=== PATIENT | female | born 1980 | race Caucasian/White ===

== ENCOUNTER 2017-07-07 01:04 | Emergency (ER) | payer MEDICAID ==
[~2017-07-07] VITALS: Ht 165.1 cm; Wt 68.0 kg
[2017-07-07 01:08] VITALS: BP 109/64
--- NOTE | 2017-07-07 01:17 | NUR ---
PT AMBULATED TO BED 1
--- NOTE | 2017-07-07 01:22 | NUR ---
37 y/o bib W/C/O L LOWER ABD PAIN X 1 HR MINUTES AGO. PT STTATES PAIN WAS LOCATED ALL OVER ABD AND MOVED TO L LOWER ABD WHILE ATTEMPING TO PASS ANGUS X 30 APPROXIMATELY MINUTES AGO . MED HX TUBO LIGATION.
--- NOTE | 2017-07-07 01:30 | NUR ---
Dr. Contreras evaluating patient.
[2017-07-07] MEDS ORDERED: NACL 0.9% 1,000 ML IV SCH (01:31)
[2017-07-07] MEDS ORDERED: ONDANSETRON 4 MG/2 ML VIAL IVP ONE (01:35)
[2017-07-07] MEDS ORDERED: MORPHINE SULFATE 10 MG/ML SYR IVP ONE (01:35)
[2017-07-07] MEDS ORDERED: MORPHINE SULFATE 4 MG/ML SYR ONE (01:40)
[2017-07-07 01:53] LABS: BASOPHILS % (AUTO) 0.6 % (0.0-2.0); EOSINOPHILS # (AUTO) 0.2 K/uL (0-0.4); EOSINOPHILS % (AUTO) 2.5 % (0.0-4.0); HEMATOCRIT 39.2 % (36-48); HEMOGLOBIN 12.7 g/dL (12.0-16.0); LYMPHOCYTES # (AUTO) 2.4 K/uL (2.5-16.5); LYMPHOCYTES % (AUTO) 29.8 % (20.5-51.1); MEAN CORPUSCULAR HEMOGLOBIN 29 pg (27-31); MEAN CORPUSCULAR HGB CONC 33 g/dL (33-37); MEAN CORPUSCULAR VOLUME 88.7 fL (80-94); MONOCYTES # (AUTO) 0.6 K/uL (0.8-1.0); MONOCYTES % (AUTO) 6.9 % (1.7-9.3); NEUTROPHILS # (AUTO) 4.8 K/uL (1.8-7.7); NEUTROPHILS % (AUTO) 60.2 % (42.2-75.2); PLATELET COUNT (AUTO) 169 K/uL (140-450); RED BLOOD CELL COUNT(AUTO) 4.42 MIL/uL (4.20-5.40); RED CELL DISTRIBUTION WIDTH 15.3 % (11.6-13.7)
[2017-07-07 02:00] LABS: APPEARANCE,URINE CLEAR (CLEAR); BILIRUBIN,URINE NEGATIVE (NEGATIVE); BLOOD, URINE NEGATIVE (NEGATIVE); COLOR,URINE YELLOW (YELLOW); LEUKOCYTE ESTERASE ,URINE NEGATIVE (NEGATIVE); NITRITE, URINE NEGATIVE (NEGATIVE); UGLUCOSE NEGATIVE (NEGATIVE)
--- NOTE | 2017-07-07 02:00 | NUR ---
ULTRASOUND AT BEDSIDE.
[2017-07-07 02:03] LABS: ANION GAP 12.6 (8-16); CARBON DIOXIDE 27.1 mmol/L (21-32); CREATININE 0.7 mg/dL (0.6-1.3); POTASSIUM 3.7 mmol/L (3.5-5.1)
[2017-07-07 02:10] LABS: ALBUMIN 3.9 g/dL (3.4-5.0); TOTAL BILIRUBIN 0.4 mg/dL (0.0-1.0)
--- NOTE | 2017-07-07 02:30 | NUR ---
Note zuleimaone in EDM - 07/07/17 at 0235 by MEDS Patient discharged with v/s stable. Written and verbal after care instructions given and explained. Patient alert, oriented and verbalized understanding of instructions. Ambulatory with steady gait. All questions addressed prior to discharge. ID band removed. Patient advised to follow up with PMD. Rx of ACETAMINOPHEN 500MG given. Patient educated on indication of medication including possible reaction and side effects. Opportunity to ask questions provided and answered.
--- NOTE | 2017-07-07 02:42 | NUR ---
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
[2017-07-07] MEDS ORDERED: AZITHROMYCIN 250 MG TAB PO ONE (02:45)
[2017-07-07] MEDS ORDERED: cefTRIAXone 1,000 MG VIAL ONE (02:56)
--- NOTE | 2017-07-07 03:26 | NUR ---
PT AWATING RESULTS, RESTING IN BED WITH FAMILY AT BEDSIDE. NO APPARENT DISTRESS NOTED. PT STATES 0/10 PAIN. WILL CONTINUE TO MONITOR.
[2017-07-07 04:15] VITALS: BP 98/56
--- NOTE | 2017-07-07 04:15 | NUR ---
Patient discharged with v/s stable. Written and verbal after care instructions given and explained. Patient alert, oriented and verbalized understanding of instructions. Ambulatory with steady gait. All questions addressed prior to discharge. ID band removed. Patient advised to follow up with PMD. Rx of DOXYCYCLINE 100MG, NAPROSYN 375MG, NORCO 5MG-325MG TAB given. Patient educated on indication of medication including possible reaction and side effects. Opportunity to ask questions provided and answered.
[2017-07-09 06:16] LABS: CHLAMYDIA TRACHOMATIS AMP DNA Negative (Negative)
== END 2017-07-07 04:15 | disposition home or self-care (01) ==
LOC: MED 01:04
DX: N70.91 Salpingitis, unspecified (principal)
CPT/HCPCS: 36415; 74176; 76856; 80053; 81003; 83690; 85025; 87491; 96361; 96365; 96375; 99285; J0696; J2270; J2405; J7030; J7060; Q0092